=== PATIENT | female | born 1965 | race Two or more races ===

== ENCOUNTER 2017-02-02 07:05 | Day surgery (SDC) | payer SELFPAY ==
--- NOTE | 2017-02-01 21:40 | Anethesia Preoperative Eval ---
Anesthesia Pre-op PMH/ROS General Date of Evaluation: Feb 01, 2017 Time of Evaluation: 21:39 Anesthesiologist: charanjit ASA Score: ASA 1 Mallampati Score Class I : Soft palate, uvula, fauces, pillars visible Class II: Soft palate, uvula, fauces visible Class III: Soft palate, base of uvula visible Class IV: Only hard plate visible Surgeon: tory Diagnosis: abdominal pain Surgical Procedure: colonoscopy Social History: smoking - nonsmoker Family History: no anesthesia problems Allergies: Coded Allergies: PENICILLINS (Verified Allergy, Mild, Rash, 02/02/17) Uncoded Allergies: PCN (Adverse Reaction, Mild, Rash, 02/02/17) Medications: see eMAR Past Medical History Gastrointestinal/Genitourinary: Reports: other - abd pain Anesthesia Pre-op Phys. Exam Physician Exam Last Vital Signs Date Time Temp Pulse Resp B/P Pulse Ox O2 Delivery O2 Flow Rate FiO2 02/02/17 07:45 97.3 62 16 122/82 98 Room Air Constitutional: NAD Neurologic: CN 2-12 intact Cardiovascular: RRR Respiratory: CTA Gastrointestinal: S/NT/ND Airway Exam Mallampati Score: Class II MO: full Neck: supple TMD: 2fb ROM: full Teeth: intact Anesthesia Pre-op A/P Risk Assessment & Plan Assessment: asa1 Plan: mac Status Change Before Surgery: No Pre-Antibiotics Drug: KATHRYN Giron Feb 01, 2017 21:40
[~2017-02-02] VITALS: Ht 160 cm; Wt 55.8 kg
[~2017-02-02 07:05] MED LIST: LR 1000ml 1,000 ML IVLG SCH
[2017-02-02 07:45] VITALS: BP 122/82
[2017-02-02] MEDS ORDERED: Lidocaine 1% MPF 10mg/ml 5ml ONE (07:50)
[2017-02-02] MEDS ORDERED: Propofol 10mg/ml 20ml IV ONE (07:50)
[2017-02-02] MEDS ORDERED: LR 1000ml ONE (07:50)
--- NOTE | 2017-02-02 07:53 | Short Stay Surgery H&P ---
History of Present Illness History of Present Illness Chief Complaint Abdominal pains JEANETH Lane is a 51 year old female who was admitted on for Abdominal Pain Patient History Allergies: Coded Allergies: No Known Allergies (Unverified , 02/01/17) PAST MEDICAL HISTORY: Past Surgeries: Social History: Review of Systems Cardiovascular: Reports: no symptoms Respiratory: Reports: no symptoms Skeletal: Reports: no symptoms Gastrointestinal: Reports: gastro esophageal reflux disease, other Genitourinary: Reports: no symptoms Neurologic: Reports: no symptoms Endocrine: Reports: no symptoms Hematologic: Reports: no symptoms Physical Exam Vital Signs Last Vital Signs Date Time Temp Pulse Resp B/P Pulse Ox O2 Delivery O2 Flow Rate FiO2 02/02/17 07:45 97.3 62 16 122/82 98 Room Air Skin: normal HENT: normal Heart: normal Lungs: normal Abdomen: abnormal Extremities: normal Genitourinary: normal Plan Plan of Care Total colonoscopy Preop Interventions None. Summary of Findings See the final report Final Diagnosis: Attestation Are the patient's medical conditions optimized for surgery? Attestation Response: yes ALISSA MONGE Feb 02, 2017 07:53
--- NOTE | 2017-02-02 07:55 | Pre-Procedure Note/Attestation ---
Pre-Procedure Note/Attestation Complete Prior to Procedure Planned Procedure: left Procedure Narrative: Endoscopic examination of the total colon. Indications for Procedure Pre-Operative Diagnosis: R/O Colon lesions/colitis/tumor/polyp. Attestation I attest that I discussed the nature of the procedure; its benefits; risks and complications; and alternatives (and the risks and benefits of such alternatives ), prior to the procedure, with the patient (or the patient's legal labor service representative). I attest that, if there was a reasonable possibility of needing a blood transfusion, the patient (or the patient's legal labor service representative) was given the [place] [facility] standardized written summary, pursuant to the [place] Blood Safety Act ([place] Health and Safety Code # 1645, as amended). I attest that I re-evaluated the patient just prior to the surgery and that there has been no change in the patient's H&P, except as documented below: SALEEM,SAID Feb 02, 2017 07:55
[2017-02-02] MEDS ORDERED: stomach med (08:16)
--- NOTE | 2017-02-02 08:22 | Discharge Instructions ---
Discharge Instructions Discharge Instructions Follow up with: Visit the doctor next week. For Congestive Heart Failure Reminder Report to your physician any weight gain of 5 pounds or more in one week. ALISSA MONGE Feb 02, 2017 08:22
--- NOTE | 2017-02-02 08:22 | Endoscopy Procedure Note ---
Endoscopy Procedure Note Indication for Procedure: Abdominal pains Procedures Performed: colonoscopy - Minimal internal hemorrhoids otherwise completely normal total colonoscopy as upto the base of the cecum examined. Specimen: none Pt Tolerated Procedure Well: Yes Estimated Blood Loss: none Anesthesiologist: Dr. Jaime Worley Anesthesia: moderate sedation Medication Given: see anesthesia record Implant(s) used?: No 50 yrs or older w/o bx or poly: Yes 10yrs. F/U not recommended: Yes If not recommended, why?: Med reason:<3 yrs.: System Reason:<3 yrs.: Last colonoscopy >= to 3yrs: Yes ALISSA MONGE Feb 02, 2017 08:22
[2017-02-02 08:27] VITALS: BP 108/73
[2017-02-02 08:32] VITALS: BP 109/75
[2017-02-02] MEDS ORDERED: LR 1000ml 1,000 ML IVLG SCH (08:36)
--- NOTE | 2017-02-02 08:36 | Immediate Post-Op Evaluation ---
Immediate Post-Op Evalulation Immediate Post-Op Evalulation Procedure: colonoscopy Date of Evaluation: Feb 02, 2017 Time of Evaluation: 08:38 IV Fluids: lr 100ml Blood Products: none Estimated Blood Loss: negligible Blood Pressure Systolic: 109 Blood Pressure Diastolic: 75 Pulse Rate: 51 Respiratory Rate: 18 O2 Sat by Pulse Oximetry: 98 Temperature (Fahrenheit): 97.2 Pain Score (1-10): 0 Nausea: No Vomiting: No Complications none Patient Status: awake, reacts, patent Hydration Status: adequate Drug: KATHRYN Giron Feb 02, 2017 08:36
[2017-02-02 08:37] VITALS: BP 109/74
--- NOTE | 2017-02-02 08:39 | 48 Hour Post Anesthesia Eval ---
Post Anesthesia Evaluation Procedure: colonoscopy Date of Evaluation: Feb 02, 2017 Time of Evaluation: 08:39 Blood Pressure Systolic: 107 0: 78 Pulse Rate: 55 Respiratory Rate: 18 Temperature (Fahrenheit): 97.2 O2 Sat by Pulse Oximetry: 99 Airway: patent Nausea: No Vomiting: No Pain Intensity: 0 Hydration Status: adequate Cardiopulmonary Status: stable Mental Status/LOC: patient returned to baseline Post-Anesthesia Complications: none Follow-up care needed: N/A KATHRYN HOWARD Feb 02, 2017 08:39
[2017-02-02] MEDS ORDERED: DiphenhydrAMINE 50mg/ml Inj IVP PRN (08:45)
[2017-02-02] MEDS ORDERED: Hydromorphone 0.5mg/0.5ml inj IVP PRN (08:45)
[2017-02-02] MEDS ORDERED: Midazolam 2mg/2ml Inj IVP PRN (08:45)
[2017-02-02] MEDS ORDERED: Atropine Inj 1mg/10ml Syr IV PRN (08:45)
[2017-02-02 08:55] VITALS: BP 108/75
[2017-02-02 09:35] VITALS: BP 122/75
--- NOTE | 2017-02-02 18:31 | Operative Note - Dictated ---
DATE OF OPERATION: 02/02/2017 PROCEDURE: Total colonoscopy. SURGEON: Yulissa Ko M.D. PREOPERATIVE DIAGNOSIS: Chronic abdominal pain. POSTOPERATIVE DIAGNOSIS: Minimal internal hemorrhoid. Otherwise, complete normal total colonoscopy up to the base of the cecum as examined. MEDICATIONS USED: Per Dr. Perdomo. INSTRUMENT: GIF Olympus videocolonoscope. DESCRIPTION OF PROCEDURE: The patient after arriving endoscopy unit, was told about risks and benefits of the procedure, which she accepted and signed the informed consent. At this point, she was put in the left lateral decubitus position and after adequate IV sedation, scope was gently passed through the anal area, which revealed evidence of external hemorrhoidal tag of no great significance. Subsequently, the scope was retroflexed in the rectal area, which revealed evidence of minimal internal hemorrhoids as they were not friable. This was consistent with grade 1 internal hemorrhoid. At this time, the scope was gradually passed through the left colon reaching to the splenic flexure. From there it was guided into the transverse colon and finally hepatic flexure and the right colon all the way to the base of the cecum were examined. All these areas remained to be completely normal without any pathological finding such as polyps, tumors, inflammatory process, stricture, ulceration, etc. The colon cleanup was excellent and at this point, the scope was gradually withdrawn from the cecum. Within 6 minutes, re-evaluation of the colonic wall did not add any further pathology. At this point, the scope was pulled out and the procedure was terminated. The patient tolerated the procedure well and left the endoscopy room in a good condition. Yulissa Ko M.D. DR: ROZ JOB#: [id number] CC:
== END 2017-02-02 14:05 | disposition home or self-care (01) ==
LOC: GAS 07:05
DX: R10.9 Unspecified abdominal pain (principal); G89.29 Other chronic pain; K21.9 Gastro-esophageal reflux disease without esophagitis; K64.8 Other hemorrhoids; Z88.0 Allergy status to penicillin
CPT/HCPCS: 45378; J2704; J7120; 94003; 94150

== ENCOUNTER 2018-05-27 07:51 | Day surgery (SDC) | payer SELFPAY ==
[2018-05-27] VITALS (8 sets, daily range): BP systolic 94–109; BP diastolic 63–76
[~2018-05-27] VITALS: Ht 154.9 cm; Wt 57.6 kg
[~2018-05-27 07:51] MED LIST changes: -LR 1000ml 1,000 ML IVLG SCH; +NEXIUM20 MG ORAL; +NKM; +stomach med
[2018-05-27] MEDS ORDERED: MULTIVITAMINS1 EA14 PO (08:28)
[2018-05-27] MEDS ORDERED: Vit D PO (08:29)
--- NOTE | 2018-05-27 09:10 | Anethesia Preoperative Eval ---
Anesthesia Pre-op PMH/ROS General Date of Evaluation: May 27, 2018 Time of Evaluation: 08:58 Anesthesiologist: Sana ASA Score: ASA 2 Mallampati Score Class I : Soft palate, uvula, fauces, pillars visible Class II: Soft palate, uvula, fauces visible Class III: Soft palate, base of uvula visible Class IV: Only hard plate visible Mallampati Classification: Class II Surgeon: Carson Diagnosis: Gastric lesion Surgical Procedure: EGD with EUS Anesthesia History: none Family History: no anesthesia problems Allergies: Coded Allergies: PENICILLINS (Verified Allergy, Mild, Rash, 02/02/17) Uncoded Allergies: PCN (Adverse Reaction, Mild, Rash, 02/02/17) Medications: see eMAR Patient NPO?: Yes Past Medical History Cardiovascular: Denies: HTN, CAD, GA, valve dz, arrhythmia, other Pulmonary: Denies: asthma, COPD, CALE, other Gastrointestinal/Genitourinary: Reports: GERD; Denies: CRI, ESRD, other Neurologic/Psychiatric: Denies: dementia, CVA, depression/anxiety, TIA, other Endocrine: Reports: hypothyroidism; Denies: DM, steroids, other HEENT: Denies: cataract (L), cataract (R), glaucoma, [place] (L[place] (R), other Hematology/Immune: Denies: anemia, DVT, bleeding disorder, other Musculoskeletal/Integumentary: Denies: OA, RA, DJD, DDD, edema, other PMH Narrative: as above PSxH Narrative: see H&P Anesthesia Pre-op Phys. Exam Physician Exam Last Vital Signs Date Time Temp Pulse Resp B/P (MAP) Pulse Ox O2 Delivery O2 Flow Rate FiO2 05/27/18 08:35 Room Air 05/27/18 08:33 97.2 61 18 108/76 100 Constitutional: NAD Neurologic: CN 2-12 intact Cardiovascular: RRR, no M/R/G Respiratory: CTA Gastrointestinal: S/NT/ND Airway Exam Mallampati Score: Class II MO: full Neck: flexible ROM: full Teeth: intact Dentures: no upper, no lower Anesthesia Pre-op A/P Labs see chart Risk Assessment & Plan Assessment: ASA 2 Plan: MAC Status Change Before Surgery: No Pre-Antibiotics Drug: none Kai Hood MD May 27, 2018 09:10
--- NOTE | 2018-05-27 09:50 | Pre-Procedure Note/Attestation ---
Pre-Procedure Note/Attestation Complete Prior to Procedure Planned Procedure: not applicable Procedure Narrative: eus Indications for Procedure Pre-Operative Diagnosis: GASTRIC SUB MUCOSA LESION Attestation I attest that I discussed the nature of the procedure; its benefits; risks and complications; and alternatives (and the risks and benefits of such alternatives ), prior to the procedure, with the patient (or the patient's legal solar manufacturer's representative). I attest that, if there was a reasonable possibility of needing a blood transfusion, the patient (or the patient's legal solar manufacturer's representative) was given the [facility] standardized written summary, pursuant to the [place] Blood Safety Act ([place] Health and Safety Code # 1645, as amended). I attest that I re-evaluated the patient just prior to the surgery and that there has been no change in the patient's H&P, except as documented below: Parveen Byrd MD May 27, 2018 09:50
--- NOTE | 2018-05-27 09:51 | Short Stay Surgery H&P ---
History of Present Illness History of Present Illness Chief Complaint gastric sub mucosa lesion JEANETH Lane is a 52 year old female who was admitted on for Gastric Lesion Patient History Allergies: Coded Allergies: PENICILLINS (Verified Allergy, Mild, Rash, 02/02/17) Uncoded Allergies: PCN (Adverse Reaction, Mild, Rash, 02/02/17) Medication History Scheduled Multivitamin (Multivitamins), 1 EACH PO DAILY, (Reported) [Vit D], 1 TAB PO DAILY, (Reported) Discontinued Medications Esomeprazole Magnesium (Nexium), 22.3 MG ORAL DAILY, (Reported) Discontinued Reason: MD discontinued med Review of Systems Cardiovascular: Reports: no symptoms Respiratory: Reports: no symptoms Skeletal: Reports: no symptoms Gastrointestinal: Reports: no symptoms Genitourinary: Reports: no symptoms Neurologic: Reports: no symptoms Endocrine: Reports: no symptoms Hematologic: Reports: no symptoms Physical Exam Vital Signs Last Vital Signs Date Time Temp Pulse Resp B/P (MAP) Pulse Ox O2 Delivery O2 Flow Rate FiO2 05/27/18 08:35 Room Air 05/27/18 08:33 97.2 61 18 108/76 100 Skin: normal HENT: normal Heart: normal Lungs: normal Extremities: normal Plan Plan of Care EUS Attestation Are the patient's medical conditions optimized for surgery? Attestation Response: yes Parveen Byrd MD May 27, 2018 09:51
[2018-05-27] MEDS ORDERED: LR 1000ml 1,000 ML IVLG SCH (09:56)
[2018-05-27] MEDS ORDERED: fentaNYL 100 mcg/2 mL IV PRN (10:00)
[2018-05-27] MEDS ORDERED: Propofol 200mg/20ml IV ONE (10:00)
[2018-05-27] MEDS ORDERED: Midazolam 2mg/2ml Inj ONE (10:00)
[2018-05-27] MEDS ORDERED: LR 1000ml ONE (10:00)
[2018-05-27] MEDS ORDERED: fentaNYL 100 mcg/2 mL IV ONE (10:00)
--- NOTE | 2018-05-27 10:11 | Endoscopy Procedure Note ---
Endoscopy Procedure Note General Indication for Procedure: sub mucosal lesion Procedures Performed: EGD, other - EUS Operative Findings/Diagnosis: same Specimen: none Pt Tolerated Procedure Well: Yes Estimated Blood Loss: none Anesthesia Anesthesiologist: marcio Anesthesia: MAC Inserted Devices Implant(s) used?: No GI Core Measures 50 yrs or older w/o bx or poly: Not Applicable 10yrs. F/U not recommended: Not Applicable Parveen Byrd MD May 27, 2018 10:11
--- NOTE | 2018-05-27 10:19 | Immediate Post-Op Evaluation ---
Immediate Post-Op Evalulation Immediate Post-Op Evalulation Procedure: EGD with EUS Date of Evaluation: May 27, 2018 Time of Evaluation: 10:18 IV Fluids: 300 Blood Products: none Estimated Blood Loss: none Urinary Output: none Blood Pressure Systolic: 94 Blood Pressure Diastolic: 56 Pulse Rate: 72 Respiratory Rate: 20 O2 Sat by Pulse Oximetry: 99 Temperature (Fahrenheit): 97.6 Pain Score (1-10): 1 Nausea: No Vomiting: No Complications none Patient Status: reacts, patent, none Hydration Status: adequate Kai Hood MD May 27, 2018 10:19
--- NOTE | 2018-05-27 17:15 | Procedure Note ---
DATE OF PROCEDURE: 05/27/2018 SURGEON: Parveen Byrd M.D. PROCEDURE: Upper endoscopy with endoscopic ultrasound. ANESTHESIA: Per Dr. Hood. INSTRUMENT: Olympus adult flexible upper endoscope and EUS scope. INDICATION: 1. Gastric submucosal lesion. 2. Abdominal pain. The procedure, risks, benefits, and possible consequences, including hemorrhage, aspiration, perforation and infection, and alternative treatments, were explained to the patient/legal guardian by Dr. Parveen Byrd and the patient/legal guardian understood and accepted these risks. DESCRIPTION OF PROCEDURE: After informed consent was obtained and the patient was adequately sedated, Olympus upper endoscope was advanced from the mouth into the second portion of the duodenum and retroflexion was performed in the stomach. The patient had normal upper endoscopy examination. On the retroflexion, there was gastric submucosal lesion just below the GE junction measured roughly may be less than a centimeter most probably that was seen on prior examination. At this time, the upper endoscope was retrieved and EUS scope was introduced. Scanning starting at GE junction, celiac axis was seen without any obvious celiac axis there was no dilated pancreatic duct. Then, the scope was advanced to the duodenal bulb and second portion of duodenum and the head of the pancreas was examined where everything looked normal. There is no peripancreatic lymphadenopathy. Common bile duct and pancreatic duct was normal at the ampulla. No gallstones or gallbladder wall thickening. Then we started focusing on the GE junction where the gastric submucosal lesion seen prior to this procedure. There was a about 8 millimeter hyperechoic lesion arising from muscularis mucosa layer hypoechoic in nature suspicious for leiomyoma arising from muscularis mucosa layer. This lesion actually looked either smaller or the same size since the last procedure. SUMMARY OF FINDINGS: An 8 mm gastric submucosal lesion below the GE junction arising from muscularis mucosal layer suspicious for leiomyoma, otherwise normal EUS and upper endoscopic examination. RECOMMENDATIONS: 1. No need to follow up for next 3 years. 2. At this time, the patient to follow in the office of primary care physician for further workup of her abdominal pain. Parveen Byrd M.D. DR: Isaac JOB#: [id number] CC:
[2018-05-28 07:33] VITALS: BP 108/74
--- NOTE | 2018-05-28 07:33 | 48 Hour Post Anesthesia Eval ---
Post Anesthesia Evaluation Procedure: EGD with EUS Date of Evaluation: May 27, 2018 Time of Evaluation: 12:10 Blood Pressure Systolic: 108 0: 74 Pulse Rate: 64 Respiratory Rate: 20 Temperature (Fahrenheit): 97.6 O2 Sat by Pulse Oximetry: 98 Airway: patent Nausea: No Vomiting: No Pain Intensity: 1 Hydration Status: adequate Cardiopulmonary Status: stable Mental Status/LOC: patient returned to baseline Follow-up Care/Observations: n/a Post-Anesthesia Complications: none Follow-up care needed: ready to discharge Kai Hood MD May 28, 2018 07:33
--- NOTE | 2018-05-28 08:46 | Cardiology Report ---
APPROVED REPORT EKG Measurement Heart [id number] Sinus bradycardia Otherwise normal ECG
== END 2018-05-27 11:20 | disposition home or self-care (01) ==
LOC: GAS 07:51
DX: K31.9 Disease of stomach and duodenum, unspecified (principal); K21.9 Gastro-esophageal reflux disease without esophagitis; E03.9 Hypothyroidism, unspecified; Z88.0 Allergy status to penicillin
CPT/HCPCS: 43237; 93005; J2250; J2704; J3010; 94003; 94150